=== PATIENT | male | born 1985 | race Caucasian/White ===

== ENCOUNTER → 2024-06-06 | Outpatient (BNVA) | payer BC, SELFPAY | END | disposition home or self-care (01) | PROVIDERS: PCP Nurse Practitioner Primary Care; Referring Provider Nurse Practitioner Primary Care; Visit Provider Nurse Practitioner Primary Care | DX: H66.002 Acute suppurative otitis media without spontaneous rupture of ear drum, left ear (principal) | CPT/HCPCS: 99213 ==